=== PATIENT | male | born 1995 | race Caucasian/White ===

== ENCOUNTER 2022-07-19 13:10 | Emergency (ER) | payer OTHER ==
[~2022-07-19] VITALS: Ht 180.3 cm; Wt 83.9 kg
[~2022-07-19 13:10] MED LIST: HYDHCL25 PO; MELA3 PO; MONT5TCH PO
[2022-07-19] MEDS ORDERED: CEPH500 PO (14:09)
[2022-07-19] MEDS ORDERED: Bactrim Ds Tab1 EACH PO (14:09)
== END 2022-07-19 14:30 | disposition home or self-care (01) ==
LOC: ER 13:10
DX: M27.2 Inflammatory conditions of jaws (principal)
CPT/HCPCS: 99282